=== PATIENT | female | born 1975 | race Caucasian/White ===

== ENCOUNTER 2017-12-08 09:25 | Emergency (ER) | payer MEDICAID, OTHER ==
[~2017-12-08] VITALS: Ht 165.1 cm; Wt 75.1 kg
[~2017-12-08 09:25] MED LIST: ACET325T14 PO; ALIVE VITAMIN PO; BUPR75TA6 PO; CLON1TAB PO; COLE1TAB2 PO; DICL100G19 TP; ESCI20TA PO; HYDR25TA11 PO; HYDR2TAB29 PO; IRON PO; KLONOPIN; LORA2TAB99 PO; OMEP20CA9 PO; ONDA4TAB10 SL; OXYC-306 PO; OXYC1TAB8 PO; PERCOCET; POTA10TA PO; PROM25VI5 HOMEMEDPR; TIZA2CAP2; TIZA4CAP2 PO; TRAZ-137 PO; ZOLP10TA PO
[2017-12-08] MEDS ORDERED: TIZA4TAB PO (09:43)
[2017-12-08] MEDS ORDERED: ZOLP5TAB6 PO (09:43)
[2017-12-08] MEDS ORDERED: TRAZ150T62 PO (09:43)
[2017-12-08] MEDS ORDERED: BUSP7.5T3 PO (09:43)
[2017-12-08] MEDS ORDERED: METOCLOPRAMIDE 5 MG/ML, 2ML ONE (09:56)
[2017-12-08] MEDS ORDERED: FAMOTIDINE 20 MG/2 ML ONE (09:56)
[2017-12-08] MEDS ORDERED: SODIUM CHLORIDE FLUSH 10ML SYR IVF ONE (10:00)
[2017-12-08] MEDS ORDERED: FAMOTIDINE 20 MG/2 ML IVP ONE (10:00)
[2017-12-08] MEDS ORDERED: METOCLOPRAMIDE 5 MG/ML, 2ML IVPush ONE (10:00)
[2017-12-08] MEDS ORDERED: SODIUM CHLORIDE 0.9% 1,000ML IVBOLUS ONE (10:00)
[2017-12-08 10:02] LABS: BASOPHILS % (AUTO) 0 % (0-1); EOSINOPHILS % (AUTO) 0 % (1-7); LYMPHOCYTES % (AUTO) 15 % (22-44); MEAN CORPUSCULAR HEMOGLOBIN 32.7 pg (27.0-34.8); MEAN CORPUSCULAR HGB CONC 34.7 g/dL (32.4-35.8); MEAN CORPUSCULAR VOLUME 94.2 fL (80-100); MONOCYTES % (AUTO) 4 % (2-9); NEUTROPHILS # (AUTO) 7.11 x10^3/uL (1.8-6.8); NEUTROPHILS % (AUTO) 81 % (42-75); PLATELET COUNT 333 x10^3/uL (130-400); RED BLOOD COUNT 4.37 x10^6/uL (3.82-5.3)
[2017-12-08 10:03] LABS: BASOPHILS # (AUTO) 0.04 x10^3/uL (0-0.1); EOSINOPHILS # (AUTO) 0.01 x10^3/uL (0-0.4); LYMPHOCYTES # (AUTO) 1.27 x10^3/uL (1-3.4); MD NO; MONOCYTES # (AUTO) 0.33 x10^3/uL (0.2-0.8)
[2017-12-08 10:12] LABS: INTERNATIONAL NORMALIZED RATIO 0.97 (0.93-1.1)
[2017-12-08 10:47] LABS: MICROSCOPIC INDICATED
[2017-12-08 10:50] LABS: CULTURE INDICATED? YES
[2017-12-08] MEDS ORDERED: MORPHINE SULFATE 4 MG/ML, 1ML ONE ×2 (11:17→11:53)
[2017-12-08] MEDS: MORPHINE SULFATE 4 MG/ML, 1ML IVPush PRN ×2 (11:19→11:54)
[2017-12-08 11:32] LABS: ALBUMIN 4.5 g/dL (3.4-5.0); ANION GAP 14 mmol/L (5-15); CALCIUM 9.1 mg/dL (8.5-10.1); CHLORIDE 107 mmol/L (98-107)
[2017-12-08 11:38] LABS: ALANINE AMINOTRANSFERASE 20 U/L (12-78); ALKALINE PHOSPHATASE 72 U/L (45-117); BILIRUBIN,TOTAL 0.8 mg/dL (0.2-1.0); CREATININE 0.71 mg/dL (0.55-1.02); TOTAL PROTEIN 7.9 g/dL (6.4-8.2)
[2017-12-08 11:54] VITALS: BP 160/84
[2017-12-08] MEDS ORDERED: DIPHENHYDRAMINE 50 MG/ML, 1ML ONE (12:21)
[2017-12-08] MEDS ORDERED: DIPHENHYDRAMINE 50 MG/ML, 1ML IVPush ONE (12:30)
== END 2017-12-08 12:37 | disposition home or self-care (01) ==
LOC: ED 11:49
DX: R10.11 Right upper quadrant pain (principal); M25.511 Pain in right shoulder; G89.29 Other chronic pain; F11.20 Opioid dependence, uncomplicated
CPT/HCPCS: 36415; 74022; 80053; 81001; 83690; 84703; 85025; 85610; 87086; 93005; 96374; 96375; 96376; 99285; J1200; J2765; J7030; S0028

== ENCOUNTER 2018-10-04 17:43 | Emergency (ER) | payer BC, MEDICAID ==
[~2018-10-04] VITALS: Ht 165.1 cm; Wt 64.8 kg
[2018-10-04 17:47] VITALS: BP 120/67
== END 2018-10-04 20:09 | disposition home or self-care (01) ==
LOC: ED 20:03
DX: L03.113 Cellulitis of right upper limb (principal); F17.200 Nicotine dependence, unspecified, uncomplicated
CPT/HCPCS: 36415; 73130; 80048; 85025; 96372; 99284; J0690

== ENCOUNTER 2019-02-10 14:27 | Observation (INO) | payer BC, MEDICAID ==
[~2019-02-10] VITALS: Ht 165.1 cm; Wt 51.5 kg
[~2019-02-10 14:27] MED LIST changes: +BUSP7.5T3 PO; +HYDR-826 PO; -HYDR25TA11 PO; +TIZA4TAB2 PO; +TRAZ150T62 PO; +ZOLP5TAB6 PO
--- NOTE | 2019-02-10 15:00 | NUR ---
PT WITH C/O N/V SINCE THIS WK, 02/09. PT HEAVING AND VOMITTING IN EMESIS BAG. MULTIPLE FAILED ATTEMPTS AT IV ACCESS. TASK RN PLACED R EJ LINE, PT MEDICATED PER MAY.
[2019-02-10] MEDS ORDERED: ONDANSETRON 2MG/ML, 2ML ONE (15:19)
[2019-02-10] MEDS ORDERED: FAMOTIDINE 20 MG/2 ML ONE (15:19)
[2019-02-10] MEDS ORDERED: SODIUM CHLORIDE 0.9% 1,000ML IVBOLUS ONE (15:30)
[2019-02-10] MEDS ORDERED: ONDANSETRON 2MG/ML, 2ML IVPush ONE (15:30)
[2019-02-10] MEDS ORDERED: FAMOTIDINE 20 MG/2 ML IV ONE (15:30)
[2019-02-10] MEDS ORDERED: SODIUM CHLORIDE FLUSH 10ML SYR IVF ONE (15:30)
[2019-02-10 15:40] LABS: BASOPHILS # (AUTO) 0.06 x10^3/uL (0-0.1); BASOPHILS % (AUTO) 1 % (0-1); EOSINOPHILS # (AUTO) 0.15 x10^3/uL (0-0.4); EOSINOPHILS % (AUTO) 1 % (1-7); LYMPHOCYTES # (AUTO) 1.42 x10^3/uL (1-3.4); LYMPHOCYTES % (AUTO) 11 % (22-44); MD NO; MEAN CORPUSCULAR HEMOGLOBIN 32.6 pg (27.0-34.8); MEAN CORPUSCULAR HGB CONC 33.7 g/dL (32.4-35.8); MEAN CORPUSCULAR VOLUME 96.8 fL (80-100); MEAN PLATELET VOLUME 8.1 fL (7.4-10.4); MONOCYTES # (AUTO) 0.74 x10^3/uL (0.2-0.8); MONOCYTES % (AUTO) 6 % (2-9); NEUTROPHILS # (AUTO) 10.41 x10^3/uL (1.8-6.8); NEUTROPHILS % (AUTO) 81 % (42-75); PLATELET COUNT 364 x10^3/uL (130-400); RED BLOOD COUNT 4.45 x10^6/uL (3.82-5.3); RED CELL DISTRIBUTION WIDTH 12.6 % (9.6-15.2)
[2019-02-10 15:45] LABS: ALANINE AMINOTRANSFERASE 17 U/L (12-78); ALBUMIN 4.8 g/dL (3.4-5.0); ANION GAP 13 mmol/L (5-15); CALCIUM 9.5 mg/dL (8.5-10.1); CHLORIDE 106 mmol/L (98-107); CREATININE 0.74 mg/dL (0.55-1.02)
[2019-02-10 15:47] LABS: ALKALINE PHOSPHATASE 66 U/L (45-117); BILIRUBIN,TOTAL 0.8 mg/dL (0.2-1.0); TOTAL PROTEIN 8.1 g/dL (6.4-8.2)
--- NOTE | 2019-02-10 16:04 | NUR ---
PT ASSISTED TO BR WITH WHEELCHAIR, PT WITH L ANKLE PAIN. UA SAMPLE COLLECTED AND SENT TO LAB
[2019-02-10] MEDS ORDERED: PROMETHAZINE 25 MG/ML, 1ML ONE (16:25)
--- NOTE | 2019-02-10 16:29 | NUR ---
ADDITIONAL ORDER RECIEVED FOR NAUSEA, PT MEDICATED PER MAR
[2019-02-10] MEDS ORDERED: PROMETHAZINE 25 MG/ML, 1ML IM ONE (16:30)
[2019-02-10] MEDS ORDERED: SODIUM CHLORIDE 0.9% 1,000 ML IV ONE (16:32)
[2019-02-10 16:37] LABS: HCG UR SG 1.028 (1.003-1.030); MICROSCOPIC AUTO
[2019-02-10 16:58] LABS: CULTURE INDICATED? NO
[2019-02-10] MEDS ORDERED: POTASSIUM CHLORIDE 40 MEQ in SODIUM CHLORIDE 0.9% 500 ML IV ONE ×3 (17:00→22:00)
--- NOTE | 2019-02-10 17:24 | NUR ---
PT CONTINUES TO VOMIT AND DRY HEAVE DESPITE ADDITIONAL [employer]. DX ABD ORDERED, WILL KEEP PT NPO.
[2019-02-10] MEDS ORDERED: METOCLOPRAMIDE 5 MG/ML, 2ML IVPush ONE (18:00)
[2019-02-10] MEDS ORDERED: METOCLOPRAMIDE 5 MG/ML, 2ML ONE (18:02)
[2019-02-10] MEDS ORDERED: MORPHINE SULFATE 4 MG/ML, 1ML ONE ×2 (18:03→19:36)
[2019-02-10] MEDS: MORPHINE SULFATE 4 MG/ML, 1ML IVPush PRN ×2 (18:07→19:40)
--- NOTE | 2019-02-10 18:28 | NUR ---
ATTEMPTED TO COMPLETE MED REC, PT DENIES CURRENT MEDICATIONS
--- NOTE | 2019-02-10 18:50 | NUR ---
received report from GILBERT Hurd
[2019-02-10] MEDS: SODIUM CHLORIDE 0.9% 1,000 ML IV SCH (19:09)
--- NOTE | 2019-02-10 19:29 | NUR ---
report to GILBERT Starkey
[2019-02-10] MEDS ORDERED: hydrALAzine 20 MG/ML, 1ML IVPush PRN (19:30)
[2019-02-10] MEDS ORDERED: morphine SULFATE 10 MG/ML, 1ML IVPush PRN (19:30)
[2019-02-10] MEDS ORDERED: BISACODYL 10 MG SUPP PR PRN (19:30)
[2019-02-10] MEDS ORDERED: DOCUSATE 100 MG CAPSULE PO PRN (19:30)
[2019-02-10] MEDS ORDERED: ONDANSETRON ODT 4 MG PO PRN (19:30)
[2019-02-10] MEDS ORDERED: NICOTINE 7 MG/24 HR PATCH.TD24 TD SCH (19:30)
[2019-02-10] MEDS ORDERED: POLYETHYLENE GLYCOL 17 GM PACKET PO PRN (19:30)
[2019-02-10] MEDS ORDERED: ACETAMINOPHEN 325 MG TABLET PO PRN (19:30)
--- NOTE | 2019-02-10 19:42 | NUR ---
patient re-medicated for pain prior going up to her room. no diarrhea noted.
[2019-02-10 19:49] LABS: FREE T4 (FREE THYROXINE) 1.32 ng/dL (0.76-1.46)
[2019-02-10 20:35] VITALS: BP 160/71
[2019-02-10] MEDS: HEPARIN 5,000 UNITS/ML, 1ML SQ SCH (21:30)
[2019-02-10] MEDS: ONDANSETRON 2MG/ML, 2ML IVPush PRN (21:42)
[2019-02-10 23:02] VITALS: BP 95/60
[2019-02-10] MEDS ORDERED: TRAZ150T62 PO (23:11)
[2019-02-10 23:44] LABS: AMPHETAMINE SCREEN, URINE Negative (Negative); BARBITURATE SCREEN, URINE Negative (Negative); BENZODIAZEPINE SCREEN, URINE Negative (Negative); CANNABINOID SCREEN, URINE Positive (Negative); COCAINE SCREEN, URINE Negative (Negative); METHADONE SCREEN, URINE Negative (Negative); OPIATE SCREEN, URINE Positive (Negative)
[2019-02-11] MEDS: OXYcodone IR 5MG TABLET PO PRN ×3 (00:44→14:26)
[2019-02-11] MEDS: PROMETHAZINE 25 MG/ML, 1ML IM PRN ×2 (00:53→08:12)
[2019-02-11 01:34] VITALS: BP 166/99
[2019-02-11] MEDS: SODIUM CHLORIDE 0.9% 1,000 ML IV SCH ×2 (03:09→11:09)
[2019-02-11] MEDS: ONDANSETRON 2MG/ML, 2ML IVPush PRN (04:53)
[2019-02-11] MEDS: HEPARIN 5,000 UNITS/ML, 1ML SQ SCH ×2 (04:53→13:30)
[2019-02-11 05:54] LABS: BASOPHILS # (AUTO) 0.03 x10^3/uL (0-0.1); BASOPHILS % (AUTO) 0 % (0-1); EOSINOPHILS # (AUTO) 0.09 x10^3/uL (0-0.4); EOSINOPHILS % (AUTO) 1 % (1-7); LYMPHOCYTES # (AUTO) 1.75 x10^3/uL (1-3.4); LYMPHOCYTES % (AUTO) 22 % (22-44); MD NO; MEAN CORPUSCULAR HEMOGLOBIN 32.9 pg (27.0-34.8); MEAN CORPUSCULAR HGB CONC 33.7 g/dL (32.4-35.8); MEAN CORPUSCULAR VOLUME 97.7 fL (80-100); MEAN PLATELET VOLUME 8.4 fL (7.4-10.4); MONOCYTES # (AUTO) 0.83 x10^3/uL (0.2-0.8); MONOCYTES % (AUTO) 10 % (2-9); NEUTROPHILS # (AUTO) 5.29 x10^3/uL (1.8-6.8); NEUTROPHILS % (AUTO) 66 % (42-75); PLATELET COUNT 260 x10^3/uL (130-400); RED BLOOD COUNT 3.65 x10^6/uL (3.82-5.3); RED CELL DISTRIBUTION WIDTH 13.1 % (9.6-15.2)
[2019-02-11 06:01] LABS: ALBUMIN 3.5 g/dL (3.4-5.0); CHLORIDE 110 mmol/L (98-107)
[2019-02-11 06:07] LABS: ALANINE AMINOTRANSFERASE 19 U/L (12-78); ALKALINE PHOSPHATASE 53 U/L (45-117); ANION GAP 8 mmol/L (5-15); BILIRUBIN,TOTAL 0.9 mg/dL (0.2-1.0); CALCIUM 7.9 mg/dL (8.5-10.1); CHOL/HDL RATIO 2.4; CHOLESTEROL, TOTAL 112 mg/dL (140-239); CREATININE 0.58 mg/dL (0.55-1.02); HDL CHOL % 42 % (28-40); HDL CHOLESTEROL (DIRECT) 47 mg/dL (40-60); LDL CHOLESTEROL,CALCULATED 56 mg/dL (54-169); LDL/HDL RATIO 1.2 (0.5-3.0); TOTAL PROTEIN 6.3 g/dL (6.4-8.2); TRIGLYCERIDES 47 mg/dL (50-200); VLDL CHOLESTEROL 9 mg/dL (0-25)
[2019-02-11 07:20] VITALS: BP 97/62
[2019-02-11 13:25] VITALS: BP 114/71
== END 2019-02-11 16:30 | disposition home or self-care (01) ==
LOC: ED 16:52 → EDIP 17:52 → INTOOBSV 17:52 → 3N 20:33
PROVIDERS: ADMIT Internal Medicine; ATTEND Internal Medicine
DX: K52.9 Noninfective gastroenteritis and colitis, unspecified (principal); F41.1 Generalized anxiety disorder; G89.4 Chronic pain syndrome; F17.210 Nicotine dependence, cigarettes, uncomplicated; F12.90 Cannabis use, unspecified, uncomplicated; S99.919A Unspecified injury of unspecified ankle, initial encounter; E87.6 Hypokalemia; Z79.899 Other long term (current) drug therapy; Z88.8 Allergy status to other drugs, medicaments and biological substances; Z88.1 Allergy status to other antibiotic agents; Z90.49 Acquired absence of other specified parts of digestive tract; W00.0XXA Fall on same level due to ice and snow, initial encounter; Y92.89 Other specified places as the place of occurrence of the external cause; Y93.89 Activity, other specified
CPT/HCPCS: 36415; 73610; 74021; 74176; 80053; 80061; 80307; 81001; 81025; 83036; 83690; 83735; 84439; 84443; 85025; 96361; 96365; 96366; 96372; 96375; 96376; 99285; G0378; J2270; J2405; J2550; J3480; J3490; J7030; J7040; J2765

== ENCOUNTER 2019-02-12 11:17 | Emergency (ER) | payer MEDICAID ==
[~2019-02-12] VITALS: Ht 165.1 cm; Wt 66.2 kg
--- NOTE | 2019-02-12 11:36 | NUR ---
pt c/o abd pain again after being discharged from hospital yesterday for abd pain n/v/d. +sore thhraot. pt reports mainly dry heaving now with a little bile. waiting for orders.
--- NOTE | 2019-02-12 11:50 | NUR ---
PT IN RAD BEFORE BEING ABLE TO MEDICATE.
[2019-02-12] MEDS ORDERED: METOCLOPRAMIDE 5 MG/ML, 2ML ONE (11:57)
[2019-02-12] MEDS ORDERED: HALOPERIDOL 5 MG/ML ONE (11:57)
[2019-02-12] MEDS ORDERED: FAMOTIDINE 20 MG/2 ML ONE (11:57)
[2019-02-12] MEDS ORDERED: FAMOTIDINE 20 MG/2 ML IV ONE (12:00)
[2019-02-12] MEDS ORDERED: SODIUM CHLORIDE FLUSH 10ML SYR IVF ONE (12:00)
[2019-02-12] MEDS ORDERED: SODIUM CHLORIDE 0.9% 1,000ML IVBOLUS ONE (12:00)
[2019-02-12] MEDS ORDERED: METOCLOPRAMIDE 5 MG/ML, 2ML IVPush ONE (12:00)
[2019-02-12] MEDS ORDERED: HALOPERIDOL 5 MG/ML IV ONE (12:00)
[2019-02-12 12:05] LABS: ALANINE AMINOTRANSFERASE 27 U/L (12-78); ALBUMIN 4.4 g/dL (3.4-5.0); ANION GAP 6 mmol/L (5-15); CALCIUM 8.8 mg/dL (8.5-10.1); CHLORIDE 108 mmol/L (98-107); CREATININE 0.76 mg/dL (0.55-1.02)
[2019-02-12 12:07] LABS: ALKALINE PHOSPHATASE 68 U/L (45-117); BILIRUBIN,TOTAL 0.7 mg/dL (0.2-1.0); TOTAL PROTEIN 7.9 g/dL (6.4-8.2)
[2019-02-12 12:10] LABS: BASOPHILS # (AUTO) 0.02 x10^3/uL (0-0.1); BASOPHILS % (AUTO) 0 % (0-1); EOSINOPHILS % (AUTO) 0 % (1-7); HEMOGRAM NOTE RECHECKED; LYMPHOCYTES # (AUTO) 0.81 x10^3/uL (1-3.4); LYMPHOCYTES % (AUTO) 11 % (22-44); MD NO; MEAN CORPUSCULAR HEMOGLOBIN 31.8 pg (27.0-34.8); MEAN CORPUSCULAR HGB CONC 33.2 g/dL (32.4-35.8); MEAN PLATELET VOLUME 7.7 fL (7.4-10.4); MONOCYTES % (AUTO) 3 % (2-9); NEUTROPHILS # (AUTO) 6.38 x10^3/uL (1.8-6.8); NEUTROPHILS % (AUTO) 86 % (42-75); PLATELET COUNT 310 x10^3/uL (130-400); RED BLOOD COUNT 4.35 x10^6/uL (3.82-5.3); RED CELL DISTRIBUTION WIDTH 12.7 % (9.6-15.2)
[2019-02-12] MEDS ORDERED: POTASSIUM CHLORIDE 20 MEQ PACKET ONE (12:53)
--- NOTE | 2019-02-12 13:00 | NUR ---
CHART UP FOR MD RECHECK. PT AWARE.
[2019-02-12] MEDS ORDERED: KETOROLAC 30 MG/1 ML ONE (13:35)
--- NOTE | 2019-02-12 13:45 | NUR ---
PT VOMITED ONCE AFTER DRINKING POTASSIUM CUP RAPIDLY WHEN ASKED BY DR. MONTES TO FINISH CUP. PT THEN DRANK A GLAS OF WATER FAST. THIS RN OBSERVED PT PLACING BLANKET OVER HER FACE AND HANDS UP BY HER MOUTH WITH AN AUDIBLE GAGGING SOUND. DR. MONTES AWARE.
[2019-02-12 13:49] VITALS: BP 151/83
[2019-02-12] MEDS ORDERED: KETOROLAC 30 MG/1 ML IVPush ONE (14:00)
[2019-02-12] MEDS ORDERED: POTASSIUM CHLORIDE 20 MEQ PACKET PO ONE (14:00)
== END 2019-02-12 14:04 | disposition home or self-care (01) ==
LOC: ED 12:20
DX: R10.13 Epigastric pain (principal); R11.2 Nausea with vomiting, unspecified; E87.6 Hypokalemia; F17.200 Nicotine dependence, unspecified, uncomplicated; Z90.49 Acquired absence of other specified parts of digestive tract
CPT/HCPCS: 36415; 74021; 80053; 83690; 85025; 96361; 96374; 96375; 99284; J1630; J1885; J2765; J3490; J7030